=== PATIENT | female | born 1975 | race Hispanic/Latino ===

== ENCOUNTER 2020-08-21 14:41 | Emergency (ER) | payer OTHER ==
[~2020-08-21] VITALS: Ht 154.9 cm; Wt 85.8 kg
[~2020-08-21 14:41] MED LIST: ASHLYNA 0.15-01 EACH PO; MOTRIN IB200 MG PO; ONDANSETRON ODT8 MG PO; PERCOCET 10-321 EACH PO
--- NOTE | 2020-08-21 15:00 | EKG ---
[facility] [address] [address] [place], [place] [address] Signed Normal sinus rhythm Nonspecific T wave abnormality Abnormal ECG No previous ECGs available Confirmed by KAITLIN ARIZA DO ([id number]) on 08/21/2020 2:59:54 PM Electronically Signed By: KAITLIN ARIZA DO 08/21/20 1500 PATIENT NAME: JENIFER MONIQUE Electrocardiogram DATE OF : 77 PHYSICIAN: KAITLIN ARIZA DO REPORT #: [id number] REPORT IS CONFIDENTIAL AND NOT TO BE RELEASED WITHOUT AUTHORIZATION
[2020-08-21] MEDS ORDERED: DICLOFENAC SODI75 MG PO (15:28)
[2020-08-21] MEDS ORDERED: FLUOXETINE HCL20 M1 PO (15:28)
== END 2020-08-21 17:23 | disposition home or self-care (01) ==
LOC: ED 14:41
DX: R07.89 Other chest pain (principal); Z79.899 Other long term (current) drug therapy; Z91.018 Allergy to other foods
CPT/HCPCS: 71260; 80053; 83735; 84484; 85025; 85379; 93005; 93010; 99285-25